=== PATIENT | female | born 1965 | race Caucasian/White ===

== ENCOUNTER 2017-02-06 21:15 | Observation (INO) | payer BC ==
[~2017-02-06] VITALS: Ht 160 cm; Wt 59.0 kg
[2017-02-07 01:13] LABS: HEMOGLOBIN 12.6 gm/dl (12.3-15.3); RED BLOOD COUNT 4.35 M/UL (4.00-5.10); WHITE BLOOD COUNT 8.1 K/UL (4.5-11.0)
[2017-02-07 01:42] LABS: BUN/CREATININE RATIO 19 (0-10)
[2017-02-07] MEDS ORDERED: BUSPAR 10MG10 MG PO (06:07)
[2017-02-07] MEDS ORDERED: WELLBUTRIN 100100 MG PO (06:07)
[2017-02-07] MEDS ORDERED: SYNTHROID25 MCG PO (06:08)
[2017-02-07] MEDS ORDERED: VITAMIN D 11000 UNIT PO (06:09)
[2017-02-07] MEDS ORDERED: DAILY MULTIPLE1 EAC1 PO (06:09)
[2017-02-07] MEDS ORDERED: ZOLOFT100 MG PO (06:10)
[2017-02-07] MEDS ORDERED: CRANBERRY200 MG PO (06:10)
[2017-02-07] MEDS ORDERED: MIMVEY 1-0.5 M1 EACH PO (06:11)
[2017-02-07] MEDS ORDERED: COQ-10100 MG PO (06:12)
[2017-02-07] MEDS ORDERED: MAGNESIUM30 MG PO (06:12)
[2017-02-07] MEDS ORDERED: ASPIR 8181 MG PO (06:13)
[2017-02-07] MEDS ORDERED: ELAVIL 10 MG TA10 MG PO (06:13)
[2017-02-07] MEDS ORDERED: TRAZODONE HCL50 MG PO (06:14)
[2017-02-07 07:56] LABS: HEMOGLOBIN 11.9 gm/dl (12.3-15.3); RED BLOOD COUNT 4.18 M/UL (4.00-5.10); WHITE BLOOD COUNT 7.1 K/UL (4.5-11.0)
[2017-02-07 08:16] LABS: BUN/CREATININE RATIO 20 (0-10)
[2017-02-07] MEDS ORDERED: BUSPIRONE HCL15 MG PO (13:53)
== END 2017-02-07 17:56 | disposition home or self-care (01) ==
LOC: ER1 21:15 → ZEROF 02-07 02:45 → M/S 02-07 02:45 → MED SURG 4 02-07 04:05 → M/S 02-07 04:31
PROVIDERS: Family Medicine; Physician Assistant; ADMIT Family Medicine
DX: R07.9 Chest pain, unspecified (principal); E03.9 Hypothyroidism, unspecified; F41.9 Anxiety disorder, unspecified; F32.9 Major depressive disorder, single episode, unspecified; Z82.49 Family history of ischemic heart disease and other diseases of the circulatory system; Z79.01 Long term (current) use of anticoagulants; Z79.82 Long term (current) use of aspirin; Z79.899 Other long term (current) drug therapy; Z90.89 Acquired absence of other organs
CPT/HCPCS: ECHO; 36415; 71010; 78452; 80053; 80061; 81001; 82550; 82553; 83690; 83735; 83874; 84439; 84443; 84484; 85025; 93005; 93017; 93306; 96361; 96374; 96375; 99285; A9502; G0378; J1200; J1885; J2765; J7030; J7050

== ENCOUNTER → 2022-04-01 | Outpatient (CLI) | payer BC ==
[~2022-04-01] MED LIST: ASPIR 8181 MG PO; BUSPAR 10MG10 MG PO; BUSPIRONE HCL15 MG PO; COQ-10100 MG PO; CRANBERRY200 MG PO; DAILY MULTIPLE1 EAC1 PO; IMITREX50 MG PO; LEXAPRO20 MG PO; MAGNESIUM30 MG PO; MIMVEY 1-0.5 M1 EACH PO; SYNTHROID25 MCG PO; TRAZODONE HCL50 MG PO; VITAMIN D 11000 UNIT PO; WELLBUTRIN 100100 MG PO; ZOLOFT100 MG PO
== END ==
LOC: KOH-I 08:37
DX: R74.01 Elevation of levels of liver transaminase levels (principal); K76.0 Fatty (change of) liver, not elsewhere classified
CPT/HCPCS: 76700

== ENCOUNTER 2022-06-21 21:58 | Emergency (ER) | payer BC ==
[2022-06-21 23:07] LABS: HEMOGLOBIN 13.9 gm/dl (12.3-15.3); RED BLOOD COUNT 4.54 M/UL (4.00-5.10); WHITE BLOOD COUNT 10.2 K/UL (4.5-11.0)
[2022-06-21 23:24] LABS: BUN/CREATININE RATIO 16 (0-10)
[2022-06-22] MEDS ORDERED: NAPROSYN500 MG PO (04:44)
== END 2022-06-22 04:57 | disposition home or self-care (01) ==
LOC: ER1 21:58
PROVIDERS: Physician Assistant Medical
DX: R07.89 Other chest pain (principal); R51.9 Headache, unspecified; F17.200 Nicotine dependence, unspecified, uncomplicated; Z20.822 Contact with and (suspected) exposure to COVID-19
CPT/HCPCS: 70450; 71045; 72040; 80053; 82550; 82553; 84484; 85025; 85379; 93005; 96374; 96375; 99285; J1200; J1885; J2765; U0002